=== PATIENT | female | born 1950 | race Caucasian/White ===

== ENCOUNTER 2018-01-19 09:58 | Emergency (ER) | payer MEDICARE, MEDICAID ==
[~2018-01-19] VITALS: Ht 162.6 cm; Wt 79.5 kg
[~2018-01-19 09:58] MED LIST: ATOR10TA69 PO
[2018-01-19 12:10] VITALS: BP 134/59
== END 2018-01-19 12:52 | disposition home or self-care (01) ==
LOC: ER 09:58
DX: S00.83XA Contusion of other part of head, initial encounter (principal); M25.562 Pain in left knee; M25.561 Pain in right knee; N18.9 Chronic kidney disease, unspecified; E78.00 Pure hypercholesterolemia, unspecified; E03.9 Hypothyroidism, unspecified; G40.909 Epilepsy, unspecified, not intractable, without status epilepticus; F20.9 Schizophrenia, unspecified; Z86.19 Personal history of other infectious and parasitic diseases; W01.198A Fall on same level from slipping, tripping and stumbling with subsequent striking against other object, initial encounter; Y93.89 Activity, other specified; Y92.128 Other place in nursing home as the place of occurrence of the external cause
CPT/HCPCS: 99283